=== PATIENT | male | born 1985 | race Two or more races ===

== ENCOUNTER 2016-11-07 19:05 | Emergency (ER) | payer SELFPAY ==
[~2016-11-07] VITALS: Ht 167.6 cm; Wt 63.5 kg
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
[2016-11-07 20:36] VITALS: BP 122/84
[2016-11-07] MEDS ORDERED: Acetaminophen 500mg (ES) tab ORAL ONE (21:00)
[2016-11-07] MEDS ORDERED: CYCLOBENZAPRINE10 MG ORAL (21:07)
[2016-11-07] MEDS ORDERED: TYLENOL EXTRA500 MG ORAL (21:07)
[2016-11-07 22:05] VITALS: BP_SYST 122; BP_SYST 124; BP_DIAS 84; BP_DIAS 87
--- NOTE | 2016-11-08 08:43 | Diagnostic Imaging Report ---
Indication: PAIN Technique: Spiral acquisitions obtained through the cervical spine. No IV contrast utilized. Multiplanar reconstructions were generated. Total dose length product 262 mGycm. CTDIvol(s) 12 mGy Comparison: None Findings: There is slight image degradation due to motion artifact. This may obscure pathology in the lower cervical spine. No acute fractures. No dislocations. Vertebral body heights and disc spaces are preserved. No significant disc bulge or protrusion, spinal stenosis, or neural foraminal stenosis. The included lung apices are clear Impression: Somewhat limited due to motion. Negative This agrees with the preliminary interpretation provided overnight by Dr. Levy The CT scanner at [facility] is accredited by the [employer] and the scans are performed using protocols designed to limit radiation exposure to as low as reasonably achievable to attain images of sufficient resolution adequate for diagnostic evaluation.
--- NOTE | 2016-11-08 09:52 | Diagnostic Imaging Report ---
Indication: PAIN Technique: Continuous helical CT scanning of the head was performed without intravenous contrast material. Axial and coronal 5 mm sections were generated. Radiation dose was minimized using automated exposure control Dose: Total Dose Length Product - DLP [address] Dose Index - CTDIvol(s) 70.38 mGy. Comparison: None Findings: The ventricular system is normal in size and configuration. There is no shift of midline structures. No abnormal extra-axial fluid collections are noted. There is no evidence of intracerebral bleeding. No other abnormal high or low density areas are noted within the brain. There is minimal ethmoid sinus disease. Intact calvarium. Visualized orbits are unremarkable Impression: Normal CT scan of the head without contrast material. Minimal sinus disease incidentally noted This agrees with the preliminary interpretation provided overnight by Dr. Levy The CT scanner at [facility] is accredited by the [employer] and the scans are performed using protocols designed to limit radiation exposure to as low as reasonably achievable to attain images of sufficient resolution adequate for diagnostic evaluation.
--- NOTE | 2016-11-08 12:10 | Diagnostic Imaging Report ---
Indication: PAIN Technique: 3 views of the lumbar spine Comparison: None Findings:Vertebral body heights are preserved. Disc spaces are preserved. Pedicles are intact. Sacral arches are preserved. Sacroiliac joint spaces are preserved Impression:Negative
== END 2016-11-07 22:05 | disposition home or self-care (01) ==
LOC: EDBD 19:05 → EMR 19:38
DX: S06.0X1A Concussion with loss of consciousness of 30 minutes or less, initial encounter (principal); M54.2 Cervicalgia; M54.5 Low back pain; V43.52XA Car driver injured in collision with other type car in traffic accident, initial encounter; Y92.410 Unspecified street and highway as the place of occurrence of the external cause; Y99.8 Other external cause status
CPT/HCPCS: 70450; 72020; 72125; 99284